=== PATIENT | female | born 1965 | race Caucasian/White ===

== ENCOUNTER 2018-01-11 10:28 | Emergency (ER) | payer BC ==
--- OUTSIDE RECORDS SUMMARY | 2018-01-11 12:37 | XMS REPORT ---
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 Active 552702900 intraepithelial lesion on cytologic smear of cervix (LGSIL) Problem Other specified N93.8 Active 986847630 abnormal uterine and vaginal bleeding Problem Unspecified lump in N63.23 Active 044641411 the left breast, lower outer quadrant Problem Tobacco abuse Z71.6 Active 011703600 counseling Problem Other specified N39.498 Active 359841195 urinary incontinence Problem Cystocele, midline N81.11 Active 809440873 Problem Other abnormal and R92.8 Active 869553859 inconclusive findings on diagnostic imaging of breast Problem Lichen simplex L28.0 Active 28492761 chronicus ALLERGIES No Information ENCOUNTERS Encounter Location Date Diagnosis [facility] 103 15 Apr, 2018 [place]YN [place], [place] [id number] [facility] 103 Mar, OBGYN [place] [id number] [facility] 103 Jan, [place] [id number] [facility] 103 Dec, [place] [id number] [facility] 103 Dec, Encounter for [facility]ological [facility] examination (general) [place], [place] [id number] (routine) without abnormal findings Z01.419 ; Personal history of vulvar dysplasia Z87.412 ; Lichen simplex chronicus L28.0 ; Encounter for screening for malignant neoplasm of cervix Z12.4 ; Encounter for screening for malignant neoplasm of colon Z12.11 ; Tobacco abuse counseling Z71.6 and Other abnormal and inconclusive findings on diagnostic imaging of breast R92.8 [facility] 103 Dec, Unspecified lump in the [facility] left breast, lower outer [place], [place] [id number] quadrant N63.23 and Other abnormal and inconclusive findings on diagnostic imaging of breast R92.8 [facility] 103 Dec, [place], [place] [id number] [facility] 103 Dec, Encounter for [facility]necological [facility] examination (general) [place], [place] [id number] (routine) with abnormal findings Z01.411 ; Personal history of vulvar dysplasia Z87.412 ; Encounter for gynecological examination (general) (routine) without abnormal findings Z01.419 ; Lichen simplex chronicus L28.0 ; Encounter for screening for malignant neoplasm of cervix Z12.4 ; Encounter for screening mammogram for malignant neoplasm of breast Z12.31 ; Encounter for screening for malignant neoplasm of colon Z12.11 and Tobacco abuse counseling Z71.6 [facility] 103 May, Unspecified lump in the [facility] left breast, lower outer [place], [place] [id number] quadrant N63.23 [facility] 103 Apr, [place], [place] [id number] [facility] 103 Apr, [facility] Z87.412 and [place], [place] [id number] Lichen simplex chronicus L28.0 [facility] 103 Apr, Other abnormal and [facility] inconclusive findings on [place], [place] [id number] diagnostic imaging of breast R92.8 [facility] 103 Apr, OBGYN [place], [place] [id number] [facility] 103 Apr, Personal [facility] of [facility] dysplasia Z87.412 and [place], [place] [id number] Lichen simplex chronicus L28.0 [facility] 103 Feb, [place] [id number] [facility] 103 Dec, [place] [id number] [facility] 103 Nov, OBGYN [place] [id number] [facility] 103 Nov, Encounter for gynecological [facility] examination (general) [place], [place] [id number] (routine) with abnormal findings Z01.411 ; Personal history of vulvar dysplasia Z87.412 ; Encounter for screening for malignant neoplasm of cervix Z12.4 ; Atypical squamous cells of undetermined significance on cytologic smear of cervix (ASC-US) R87.610 ; Encounter for screening mammogram for malignant neoplasm of breast Z12.31 ; Lichen simplex chronicus L28.0 and Encounter for screening for malignant neoplasm of colon Z12.11 [facility] 103 02 Aug, 2016 Personal history of vulvar OBGYN [facility] dysplasia Z87.412 ; [place], [place] [id number] Atypical squamous cells of undetermined significance on cytologic smear of cervix (ASC-US) R87.610 and Lichen simplex chronicus L28.0 [facility] 103 16 Mar, 2016 Personal history of vulvar OBGYN [facility] dysplasia Z87.412 ; [place], [place] [id number] Atypical squamous cells of undetermined significance on cytologic smear of cervix (ASC-US) R87.610 ; Lichen simplex chronicus L28.0 and Other specified urinary incontinence N39.498 [facility] 103 Feb, Personal history of vulvar OBGYN [facility] dysplasia Z87.412 and [place], [place] [id number] Atypical squamous cells of undetermined significance on cytologic smear of cervix (ASC-US) R87.610 [facility] 103 Nov, [place] [id number] [facility] 103 Nov, [place] [id number] [facility] 103 Nov, Personal history of vulvar OBGYN [facility] dysplasia Z87.412 ; [place], [place] [id number] Cystocele, midline N81.11 ; Rectocele N81.6 ; Incomplete uterovaginal prolapse N81.2 ; Encounter for gynecological examination (general) (routine) with abnormal findings Z01.411 ; Encounter for screening mammogram for malignant neoplasm of breast Z12.31 ; Encounter for screening for malignant neoplasm of cervix Z12.4 and Encounter for screening for malignant neoplasm of colon Z12.11 [facility] 103 12 Nov, 2015 [place] [id number] [facility] 103 Nov, Personal history of vulvar OBGYN [facility] dysplasia Z87.412 [place], [place] [id number] [facility] 103 May, Personal history of vulvar OBGYN [facility] dysplasia Z87.412 ; [place], [place] [id number] Cystocele, midline N81.11 ; Rectocele N81.6 ; Unspecified ovarian cysts N83.20 ; Other specified abnormal uterine and vaginal bleeding N93.8 and Incomplete uterovaginal prolapse N81.2 [facility] 103 May, Ovarian cyst NOS 620.2 [place] [id number] [facility] 103 May, VULVAR LESION 624.9 and OBGYN [facility] Personal history of vulvar [place], [place] [id number] dysplasia V13.24 [facility] 103 May, Cystocele, midline N81.11 [facility] and Rectocele N81.6 [place] [id number] [facility] 103 Mar, Low grade squamous [facility] intraepithelial lesion on [place], [place] [id number] cytologic smear of cervix (LGSIL) R87.612 ; Cervical high risk human papillomavirus (HPV) DNA test positive R87.810 ; Unspecified ovarian cysts N83.20 ; Other specified abnormal uterine and vaginal bleeding N93.8 and [place]ushing R23.2 [facility] 103 Mar, [place] [id number] [facility] 103 Mar, Unspecified ovarian cysts OBN [facility] N83.20 and Abnormal [place], [place] [id number] findings on diagnostic imaging of other specified body structures R93.8 [facility] 103 Feb, [place] [id number] [facility] 103 Feb, [place] [id number] [facility] 103 Feb, [place] [id number] [facility] 103 Jan, Low grade squamous [facility] intraepithelial lesion on [place], [place] [id number] cytologic smear of cervix (LGSIL) R87.612 ; Cervical high risk human papillomavirus (HPV) DNA test positive R87.810 ; Personal history of vulvar dysplasia V13.24 and Unspecified ovarian cysts N83.20 [facility] 103 Jan, OBGYN [place] [id number] [facility] 103 Jan, [place] [id number] [facility] 103 Jan, Other specified [facility] noninflammatory disorders [place], [place] [id number] of vagina N89.8 and Acute vaginitis N76.0 [facility] 103 Dec, Low grade squamous [facility] intraepithelial lesion on [place], [place] [id number] cytologic smear of cervix (LGSIL) R87.612 and Cervical high risk human papillomavirus (HPV) DNA test positive R87.810 [facility] 103 Dec, [place] [id number] [facility] 103 Nov, [place] [id number] [facility] 103 Nov, SCREEN MAMMOGRAM NEC V76.12 [place] [id number] [facility] 103 Nov, ROUTINE SIGHT EFFECTS SPECIALIST EXAMINATION [facility] V72.31 ; PAP SMEAR W/O SIGHT EFFECTS SPECIALIST [place], [place] [id number] EXAM V76.2 ; SCREEN MALIG NEOP-COLON V76.51 ; SCREEN MAMMOGRAM NEC V76.12 ; Personal history of vulvar dysplasia V13.24 and Ovarian cyst NOS 620.2 [facility] 103 Nov, Ovarian cyst NOS 620.2 [place] [id number] [facility] 103 Oct, [place] [id number] [facility] 103 Oct, [place] [id number] [facility] 103 Oct, [place] [id number] [facility] 103 Oct, Personal history of vulvar OBGYN [facility] dysplasia V13.24 and [place], [place] [id number] Ovarian cyst NOS 620.2 [facility] 103 Oct, OBGYN [place] [id number] [facility] 103 Sep, Abnormal findings on OBGYN [facility] radiological or other exams [place], [place] [id number] of body structure, NEC 793.99 ; Personal history of vulvar dysplasia V13.24 and Ovarian cyst NOS 620.2 [facility] 103 Aug, OBGYN [place] [id number] [facility] [address] [place], Aug, [place] [id number] [facility] 103 Aug, Abnormal findings on OBGYN [facility] radiological or other exams [place], [place] [id number] of body structure, NEC 793.99 [facility] 103 July, OBGYN [place], [place] [id number] [facility] July, Abnormal findings on OBGYN [address] [place], radiological or other exams [place] [id number] of body structure, NEC 793.99 ; Personal history of vulvar dysplasia V13.24 and Ovarian cyst NOS 620.2 [facility] 103 July, Abnormal findings on OBGYN [facility] radiological or other exams [place], [place] [id number] of body structure, NEC 793.99 [facility] 103 July, Abnormal findings on OBGYN [facility] radiological or other exams [place], [place] [id number] of body structure, NEC 793.99 [facility] 103 July, 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 621.34 and [place], [place] [id number] Ovarian cyst NOS 620.2 [facility] 103 July, Personal history of vulvar OBGYN [facility] dysplasia V13.24 and [place], [place] [id number] 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 [facility] 103 July, OBGYN [place], [place] [id number] [facility] 103 Jun, Menometrorrhagia 626.2 OBGYN [place], [place] [id number] [facility] 103 Jun, Ovarian cyst NOS 620.2 and OBGYN [facility] Benign endometrial [place], [place] [id number] hyperplasia 621.34 [facility] 103 Jun, Ovarian cyst NOS 620.2 O[place], [place] [id number] [facility] 103 Feb, Ovarian cyst NOS 620.2 OBG[place] [id number] [facility] 103 Feb, Ovarian cyst NOS 620.2 OBGYN [place], [place] [id number] [facility] 103 Jan, CARCINOMA IN SITU VULVA OBGYN [facility] [address] [place], [place] [id number] [facility] 103 Jan, CARCINOMA IN SITU VULVA OBGYN [place] [address] and Tobacco use [place], [place] [id number] disorder 305.1 [facility] 103 Jan, OBGYN [place] [id number] [facility] 103 Jan, OBGYN [place], [place] [id number] [facility] [address] [place], Jan, Medical [facility] [id number] [place] 103 Dec, 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) [place], [place] [id number] 624.02 [facility] 103 Dec, OBGYN [place], [place] [id number] [facility] 103 Dec, 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) [place], [place] [id number] 624.02 and VULVAR LESION 624.9 [facility] 103 Dec, Ovarian cyst NOS 620.2 OBGYN [place], [place] [id number] [facility] 103 Dec, OBGYN [place], [place] [id number] [facility] 103 Dec, 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) [place], [place] [id number] 624.02 and VULVAR LESION 624.9 [facility] 103 Oct, OBGYN [place], [place] [id number] [facility] 103 Oct, ROUTINE SIGHT EFFECTS SPECIALIST EXAMINATION OBGYN [facility] V72.31 ; PAP SMEAR W/O SIGHT EFFECTS SPECIALIST [place], [place] [id number] EXAM V76.2 ; SCREEN MAMMOGRAM NEC V76.12 ; Ovarian cyst NOS 620.2 and 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 [facility] 103 Oct, Ovarian cyst NOS 620.2 OBGYN [place] [id number] [facility] 103 Sep, SCREEN MAMMOGRAM NEC V76.12 OBGYN [place], [place] [id number] [facility] 103 Sep, Menometrorrhagia 626.2 and OBGYN [facility] Ovarian cyst NOS 620.2 [place] [id number] [facility] 103 Sep, Menometrorrhagia 626.2 O[place]YN [place], [place] [id number] [facility] 103 Sep, OBGYN [place], [place] [id number] [facility] 103 Sep, Menometrorrhagia 626.2 and OBGYN [facility] Ovarian cyst NOS 620.2 [place] [id number] [facility] 103 Sep, Ovarian cyst NOS 620.2 O[place]YN [place], [place] [id number] [facility] 103 Aug, OBGYN [place], [place] [id number] [facility] 103 Aug, OBGYN [place], [place] [id number] [facility] 103 Aug, OBGYN [place] [id number] [facility] 103 Aug, Menometrorrhagia 626.2 and OBGYN [facility] Ovarian cyst NOS 620.2 [place], [place] [id number] [facility] 103 Aug, OBGYN [place], [place] [id number] [facility] 103 Aug, Menometrorrhagia 626.2 ; OBGYN [facility] Endometrial polyp 621.0 and [place], [place] [id number] Ovarian cyst NOS 620.2 [facility] 103 Aug, Menometrorrhagia 626.2 OBGYN [place], [place] [id number] [facility] 103 Aug, Menometrorrhagia 626.2 ; OBGYN [facility] Ovarian cyst NOS 620.2 and [place], [place] [id number] Endometrial polyp 621.0 [facility] 103 July, OBGYN [place], [place] [id number] [facility] 103 July, OBG[place], [place] [id number] [facility] 103 July, Menometrorrhagia 626.2 and OBGYN [facility] Ovarian cyst NOS 620.2 [place] [id number] [facility] 103 July, [facility]rhagia 626.2 [facility] O[facility] NOS 620.2 [place], [place] [id number] [facility] 103 Jun, OBGYN [place], [place] [id number] [facility] 103 Jun, 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) [place], [place] [id number] 624.02 and Menometrorrhagia 626.2 [facility] 103 Jun, Vulvar intraepithelial [facility] neoplasia II (CARLEY II) [place], [place] [id number] 624.02 [facility] 103 May, OBGYN [place], [place] [id number] [facility] 103 May, VULVAR LESION 624.9 ; OBGYN [facility] Vulvar intraepithelial [place], [place] [id number] neoplasia II (CARLEY II) 624.02 and 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 [facility] 103 Apr, Menorrhagia 626.2 ; VULVAR OBGYN [facility] LESION 624.9 ; Vulvar [place], [place] [id number] intraepithelial neoplasia II (CARLEY II) 624.02 ; 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 ; ABN FINDINGS- ORGANS 793.5 ; Abnormal PAP smear of cervix NEC 795.09 and Ovarian cyst NOS 620.2 [facility] 103 Oct, Vulvar intraepithelial [facility] neoplasia II (CARLEY II) [place], [place] [id number] 624.02 [facility] 103 Sep, Ovarian cyst NOS 620.2 [place] [id number] [facility] 103 Sep, Ovarian cyst NOS 620.2 OBGYN [place], [place] [id number] [facility] 103 Sep, OBGYN [place], [place] [id number] [facility] 103 Sep, Abnormal PAP smear of OBGYN [facility] cervix NEC 795.09 and [place], [place] [id number] Ovarian cyst NOS 620.2 [facility] 103 Aug, ABN FINDINGS- ORGANS OBGYN [facility] 793.5 [place], [place] [id number] [facility] 103 Aug, ABN FINDINGS- ORGANS OBGYN [facility] 793.5 [place], [place] [id number] [facility] 103 Aug, Abnormal PAP smear of OBGYN [facility] cervix NEC 795.09 and [place], [place] [id number] Ovarian cyst NOS 620.2 [facility] 103 Aug, OBGYN [place], [place] [id number] [facility] 103 Jun, OBGYN [place], [place] [id number] [facility] [facility] 103 May, OBGYN [place], [place] [id number] [facility] 103 May, ROUTINE SIGHT EFFECTS SPECIALIST EXAMINATION OBGYN [facility] V72.31 ; PAP SMEAR W/O SIGHT EFFECTS SPECIALIST [place], [place] [id number] EXAM V76.2 and SCREEN MAMMOGRAM NEC V76.12 [facility] 103 May, OBGYN [place], [place] [id number] [facility] 103 Apr, 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 [place], [place] [id number] [facility] 103 Dec, 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 [place], [place] [id number] [facility] [facility] 103 Dec, 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 [place], [place] [id number] [place] [facility] 103 Oct, OBGYN [place], [place] [id number] [facility] 103 Oct, OBGYN [place], [place] [id number] [facility] 103 Oct, 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 [place], [place] [id number] [facility] 103 Sep, 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) [place], [place] [id number] 624.02 [place] [facility] 103 July, 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) [place], [place] [id number] 624.02 [place] [facility] 103 July, OBGYN [place], [place] [id number] [facility] 103 Jun, VULVAR LESION 624.9 [place] [id number] [place] [facility] 103 May, VULVAR LESION 624.9 OBGYN [place], [place] [id number] [facility] [facility] 103 Apr, ROUTINE SIGHT EFFECTS SPECIALIST EXAMINATION OBGYN [facility] V72.31 and PAP SMEAR W/O [place], [place] [id number] SIGHT EFFECTS SPECIALIST EXAM V76.2 [place] [facility] 103 Mar, [place] [id number] [place] [facility] 103 Mar, OBGYN [place], [place] [id number] [facility] [facility] 103 Sep, Menorrhagia 626.2 OBGYN [place], [place] [id number] [facility] [facility] 103 Jun, Menorrhagia 626.2 OBGYN [place], [place] [id number] [facility] [address], May, [facility] [id number] [facility] 103 May, Menorrhagia 626.2 OBGYN [place], [place] [id number] [facility] 103 May, Menorrhagia 626.2 OBGYN [place], [place] [id number] [facility] [facility] 103 Apr, Dysuria 788.1 OBGYN [place], [place] [id number] [facility] [facility] 103 Apr, Menorrhagia 626.2 OBGYN [place], [place] [id number] [facility] 103 Apr, Menorrhagia 626.2 OBGYN [place], [place] [id number] [facility] 103 Apr, Menorrhagia 626.2 and OBGYN [facility] Endometrial polyp 621.0 [place], [place] [id number] [facility] [facility] 103 Apr, Menometrorrhagia 626.2 OBGYN [place], [place] [id number] [facility] 103 Mar, ROUTINE SIGHT EFFECTS SPECIALIST EXAMINATION OBGYN [facility] V72.31 and Menorrhagia [place], [place] [id number] 626.2 [place] [facility] 103 Sep, CERVICAL DYSPLASIA, MILD OBGYN [facility] (PEYMAN I) 622.11 [place], [place] [id number] [place] [facility] 103 Mar, ROUTINE SIGHT EFFECTS SPECIALIST EXAMINATION OBGYN [facility] V72.31 and CERVICAL [place], [place] [id number] DYSPLASIA, MILD (PEYMAN I) 622.11 [facility] 103 Jun, Menometrorrhagia 626.2 ; [facility] Anemia, iron deficiency, [place], [place] [id number] due to chronic blood loss 280.0 and CERVICAL DYSPLASIA, MILD (PEYMAN I) 622.11 [facility] [address], May, [facility] [id number] [facility] 103 May, Menometrorrhagia 626.2 and [facility] Endometrial polyp 621.0 [place], [place] [id number] [facility] [facility] 103 May, Menometrorrhagia 626.2 ; [facility] Anemia, iron deficiency, [place], [place] [id number] due to chronic blood loss 280.0 ; Endometrial polyp 621.0 and CERVICAL DYSPLASIA, MILD (PEYMAN I) 622.11 [facility] 103 Apr, Menometrorrhagia 626.2 ; [facility] Anemia, iron deficiency, [place], [place] [id number] due to chronic blood loss 280.0 and Endometrial polyp 621.0 [facility] 103 Apr, Menometrorrhagia 626.2 ; [facility] Anemia, iron deficiency, [place], [place] [id number] due to chronic blood loss 280.0 and Endometrial polyp 621.0 [facility] 103 Apr, [place], [place] [id number] [facility] 103 Mar, Menometrorrhagia 626.2 [place], [place] [id number] [facility] 103 Mar, Menometrorrhagia 626.2 and [facility] Endometrial polyp 621.0 [place], [place] [id number] [facility] 103 Mar, Abnormal Pap smear of [facility] cervix with low-grade [place], [place] [id number] squamous intraepithelial lesion 795.03 [facility] 103 12 Mar, 2008 Menometrorrhagia 626.2 and OBGYN [facility] PAP SMEAR CERVIX W LGSIL [place], [place] [id number] 795.03 [facility] O[facility]YN 103 Mar, OBGYN [place], [place] [id number] [facility] OBGYN 103 Sep, OBGYN [place], [place] [id number] [facility] O[facility]YN 103 Aug, Menorrhagia 626.2 OBGYN [place], [place] [id number] IMMUNIZATIONS No Known Immunizations SOCIAL HISTORY Never Assessed REASON FOR REFERRAL FUNCTIONAL STATUS PLAN OF CARE VITAL SIGNS MEDICATIONS Unknown Medications PROCEDURES No Known procedures RESULTS No Results REASON FOR VISIT Needs colpo Insurance Providers [facility] Member Patient Patient Patient Patient Patient Subscriber Subscriber Subscriber Group Insurance Plan Plan Plan Plan ID Relationship Address Phone Name Date of ID Name Date of No Type Insurance Insurance Insurance Coverage to Subscriber Address Phone Name Dates Cign[employer] [phone] [employer] [place] [id number] [facility] [id number] [employer] [phone] [employer] self [place] [id number] Blue [id number] [address] Cross/Blue [place] Cross/Blue Shield [id number] Shield AETNA [phone] [employer] [place] [id number] [address] [address] [facility] [address] [employer] [phone] [employer] [place] [id number] Blue [id number] 89 [address] [place] 7 00 Cross/[place] Cross/Blue Shield [id number] Shield MEDICAL (GENERAL) HISTORY Type Description Date Medical History hypertension Medical History anemia Medical History anxiety Medical History VIN2 Medical History Endometrial polyp Surgical History site directed biopsy 05/02/08 Surgical History tonsils Surgical History BTL Surgical History hysteroscopy, D&C polypectomy 05-29-08 Surgical History Hysteroscopy/D&C 05-26-10 Surgical History ventral hernia repair 04-23-12 Surgical History Hysteroscopy/Novasure 09-13-13 Surgical History Right leg mole removal 12/05/13 Surgical History Wide local excision of vulva 12/08/13 Surgical History hysteroscopy, D&C 09/02/14 Surgical History Colonoscopy (Dr. Renee): sigmoid polyps 05-22-14 Surgical History 2 Stents/ lower groin 10/13/17 Hospitalization History child Hospitalization History see above
--- OUTSIDE RECORDS SUMMARY | 2018-01-11 12:37 | XMS REPORT ---
:1965 Author Organization [facility] Address [address] 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 Active 212410595 intraepithelial lesion on cytologic smear of cervix (LGSIL) Problem Other specified N93.8 Active 636780575 abnormal uterine and vaginal bleeding Problem Unspecified lump in N63.23 Active 229368328 the left breast, lower outer quadrant Problem Tobacco abuse Z71.6 Active 118626709 counseling Problem Other specified N39.498 Active 071488778 urinary incontinence Problem Cystocele, midline N81.11 Active 319031788 Problem Other abnormal and R92.8 Active 756212063 inconclusive findings on diagnostic imaging of breast Problem Lichen simplex L28.0 Active 49626590 chronicus ALLERGIES No Known Allergies ENCOUNTERS Encounter Location Date Diagnosis [facility] 103 Apr, OBGYN [place], [place] [id number] [facility] 103 Dec, OBGYN [place] [id number] [facility] 103 Dec, Encounter for gynecological OBGYN [facility] examination (general) [place], [place] [id number] (routine) without abnormal findings Z01.419 ; Personal history of vulvar dysplasia Z87.412 ; Lichen simplex chronicus L28.0 ; Encounter for screening for malignant neoplasm of cervix Z12.4 ; Encounter for screening for malignant neoplasm of colon Z12.11 ; Tobacco abuse counseling Z71.6 and Other abnormal and inconclusive findings on diagnostic imaging of breast R92.8 [facility] 103 Dec, Unspecified lump in the [facility] left breast, lower outer [place], [place] [id number] quadrant N63.23 and Other abnormal and inconclusive findings on diagnostic imaging of breast R92.8 [facility] 103 Dec, [place], [place] [id number] [facility] 103 Dec, Encounter for gynecological [facility] examination (general) [place], [place] [id number] (routine) with abnormal findings Z01.411 ; Personal [...] colon Z12.11 and Tobacco abuse counseling Z71.6 [facility] 103 May, Unspecified lump in the [facility] left breast, lower outer [place], [place] [id number] quadrant N63.23 [facility] 103 Apr, [place], [place] [id number] [facility] 103 Apr, Personal history of vulvar [facility] dysplasia Z87.412 and [place], [place] [id number] Lichen simplex chronicus L28.0 [facility] 103 Apr, Other abnormal and [facility] inconclusive findings on [place], [place] [id number] diagnostic imaging of breast R92.8 [facility] 103 18 Apr, 2017 [place] [id number] [facility] 103 Apr, [facility] Z87.412 and [place], [place] [id number] Lichen simplex chronicus L28.0 [facility] 103 Feb, [place] [id number] [facility] 103 Dec, [place] [id number] [facility] 103 Nov, [place] [id number] [facility] 103 Nov, Encounter for gynecological [facility] examination (general) [place], [place] [id number] (routine) with abnormal findings Z01.411 ; Personal [...] of colon Z12.11 [facility] 103 Aug, Personal history of vulvar OBGYN [facility] dysplasia Z87.412 ; [place], [place] [id number] Atypical squamous cells of undetermined significance on cytologic smear of cervix (ASC-US) R87.610 and Lichen simplex chronicus L28.0 [facility] 103 Mar, Personal history of vulvar OBGYN [facility] dysplasia Z87.412 ; [place], [place] [id number] Atypical squamous cells of undetermined significance on cytologic smear of cervix (ASC-US) R87.610 ; Lichen simplex chronicus L28.0 and Other specified urinary incontinence N39.498 [facility] 103 Feb, Personal history of vulvar OBGYN [facility] dysplasia Z87.412 and [place], [place] [id number] Atypical squamous cells of undetermined significance on cytologic smear of cervix (ASC-US) R87.610 [facility] 103 Nov, [place] [id number] [facility] 103 Nov, [place] [id number] [facility] 103 Nov, Personal history of vulvar OBGYN [facility] dysplasia Z87.412 ; [place], [place] [id number] Cystocele, midline N81.11 ; Rectocele N81.6 ; Incomplete uterovaginal prolapse N81.2 ; Encounter for gynecological examination (general) (routine) with abnormal findings Z01.411 ; Encounter for screening mammogram for malignant neoplasm of breast Z12.31 ; Encounter for screening for malignant neoplasm of cervix Z12.4 and Encounter for screening for malignant neoplasm of colon Z12.11 [facility] 103 Nov, [place], [place] [id number] [facility] 103 Nov, Personal history of vulvar OBGYN [facility] dysplasia Z87.412 [place], [place] [id number] [facility] 103 May, Personal history of vulvar OBGYN [facility] dysplasia Z87.412 ; [place], [place] [id number] Cystocele, midline N81.11 ; Rectocele N81.6 ; Unspecified ovarian cysts N83.20 ; Other specified abnormal uterine and vaginal bleeding N93.8 and Incomplete uterovaginal prolapse N81.2 [facility] 103 14 May, 2015 Ovarian cyst NOS 620.2 [place] [id number] [facility] 103 May, VULVAR LESION 624.9 and OBGYN [facility] Personal history of vulvar [place], [place] [id number] dysplasia V13.24 [facility] 103 May, Cystocele, midline N81.11 [facility] and Rectocele N81.6 [place], [place] [id number] [facility] 103 Mar, Low grade squamous [facility] intraepithelial lesion on [place] [id number] cytologic smear of cervix (LGSIL) R87.612 ; Cervical high risk human papillomavirus (HPV) DNA test positive R87.810 ; Unspecified ovarian cysts N83.20 ; Other specified abnormal uterine and vaginal bleeding N93.8 and Flushing R23.2 [place] [facility] 103 Mar, OBGYN [place] [id number] [facility] 103 Mar, Unspecified ovarian cysts [facility] N83.20 and Abnormal [place], [place] [id number] findings on diagnostic imaging of other specified body structures R93.8 [place] [facility] 103 Feb, O[place] [id number] [place] [facility] 103 Feb, [place] [id number] [facility] 103 Feb, [place] [id number] [facility] 103 Jan, Low grade squamous [facility] intraepithelial lesion on [place], [place] [id number] cytologic smear of cervix (LGSIL) R87.612 ; Cervical high risk human papillomavirus (HPV) DNA test positive R87.810 ; Personal history of vulvar dysplasia V13.24 and Unspecified ovarian cysts N83.20 [place] [facility] 103 Jan, [place] [id number] [facility] 103 Jan, [place] [id number] [place] [facility] 103 Jan, Other specified [facility] noninflammatory disorders [place], [place] [id number] of vagina N89.8 and Acute vaginitis N76.0 [facility] 103 Dec, Low grade squamous [facility] intraepithelial lesion on [place], [place] [id number] cytologic smear of cervix (LGSIL) R87.612 and Cervical high risk human papillomavirus (HPV) DNA test positive R87.810 [facility] 103 Dec, OBG[place] [id number] [facility] 103 Nov, [place] [id number] [facility] 103 Nov, SCREEN MAMMOGRAM NEC V76.12 [place] [id number] [facility] 103 Nov, ROUTINE LIFT BUILDER WHOLE EXAMINATION OBN [facility] V72.31 ; PAP SMEAR W/O LIFT BUILDER WHOLE [place], [place] [id number] EXAM V76.2 ; SCREEN MALIG NEOP-COLON V76.51 ; SCREEN MAMMOGRAM NEC V76.12 ; Personal history of vulvar dysplasia V13.24 and Ovarian cyst NOS 620.2 [facility] 103 Nov, Ovarian cyst NOS 620.2 [place] [id number] [facility] 103 Oct, [place] [id number] [facility] 103 Oct, [place] [id number] [facility] 103 Oct, [place] [id number] [facility] 103 Oct, Personal history of vulvar [facility] dysplasia V13.24 and [place], [place] [id number] Ovarian cyst NOS 620.2 [facility] 103 Oct, [place] [id number] [facility] 103 Sep, Abnormal findings on OBGYN [facility] radiological or other exams [place], [place] [id number] of body structure, NEC 793.99 ; Personal history of vulvar dysplasia V13.24 and Ovarian cyst NOS 620.2 [facility] 103 Aug, OBG[place] [id number] [facility] [address] [place], Aug, [facility] [id number] [facility] 103 Aug, Abnormal findings on OBGYN [facility] radiological or other exams [place], [place] [id number] of body structure, NEC 793.99 [facility] July, [place] [id number] [facility] [address] [place] [address] July, Abnormal findings on OBGYN [address] [facility], radiological or other exams [place] [id number] of body structure, NEC 793.99 ; Personal history of vulvar dysplasia V13.24 and Ovarian cyst NOS 620.2 [facility] 103 July, Abnormal findings on OBGYN [facility] radiological or other exams [place], [place] [id number] of body structure, NEC 793.99 [facility] July, Abnormal findings on OBGYN [facility] radiological or other exams [place], [place] [id number] of body structure, NEC 793.99 [facility] 103 July, 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 and [place], [place] [id number] Ovarian cyst NOS 620.2 [facility] 103 July, Personal history of vulvar OBGYN [facility] dysplasia V13.24 and [place], [place] [id number] 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 [facility] 103 July, [place] [id number] [facility] 103 Jun, Menometrorrhagia 626.2 OBGYN [place] [id number] [place] [facility] 103 Jun, Ovarian cyst NOS 620.2 and OBGYN [facility] Benign endometrial [place], [place] [address] hyperplasia 621.34 [place] [facility] 103 Jun, Ovarian cyst NOS 620.2 [place] [id number] [place] [facility] 103 Feb, Ovarian cyst NOS 620.2 [place] [id number] [place] [facility] 103 Feb, Ovarian cyst NOS 620.2 [place] [id number] [place] [facility] 103 Jan, CARCINOMA IN SITU VULVA OBGYN [facility] 233.32 [place], [place] [id number] [place] [facility] 103 Jan, CARCINOMA IN SITU VULVA OBGYN [facility] 233[facility] and Tobacco use [place], [place] [address] disorder 305.1 [place] [facility] 103 Jan, [place] [id number] [place] [facility] 103 Jan, O[place] [id number] [place] [facility] [address] [place], Jan, Medical [facility] [id number] [place] [facility] 103 Dec, 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) [place], [place] [id number] 624.02 [place] [facility] 103 Dec, [place] [id number] [place] [facility] 103 Dec, 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) [place], [place] [id number] 624.02 and VULVAR LESION 624.9 [place] [facility] 103 Dec, Ovarian cyst NOS 620.2 OBGYN [place] [id number] [place] [facility] 103 Dec, [place] [id number] [place] [facility] 103 Dec, 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) [place], [place] [id number] 624.02 and VULVAR LESION 624.9 [place] [facility] 103 Oct, OBG[place] [id number] [place] [facility] 103 Oct, ROUTINE LIFT BUILDER WHOLE EXAMINATION OBGYN [facility] V72.31 ; PAP SMEAR W/O LIFT BUILDER WHOLE [place], [place] [id number] EXAM V76.2 ; SCREEN MAMMOGRAM NEC V76.12 ; Ovarian cyst NOS 620.2 and 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 [place] [facility] 103 Oct, Ovarian cyst NOS 620.2 [place] [id number] [place] [facility] 103 Sep, SCREEN MAMMOGRAM NEC V76.12 [place] [id number] [place] [facility] 103 Sep, Menometrorrhagia 626.2 and OBGYN [facility] Ovarian cyst NOS 620.2 [place], [place] [id number] [place] [facility] 103 Sep, Menometrorrhagia 626.2 OBGYN [place] [id number] [place] [facility] 103 Sep, O[place] [id number] [place] [facility] 103 Sep, Menometrorrhagia 626.2 and OBGYN [facility] Ovarian cyst NOS 620.2 [place] [id number] [place] [facility] 103 Sep, Ovarian cyst NOS 620.2 O[place]YN [place] [id number] [place] [facility] 103 Aug, [place] [id number] [place] [facility] 103 Aug, O[place] [id number] [place] [facility] 103 Aug, [place] [id number] [place] [facility] 103 Aug, Menometrorrhagia 626.2 and OBGYN [facility] Ovarian cyst NOS 620.2 [place], [place] [id number] [place] [facility] 103 Aug, [place] [id number] [place] [facility] 103 Aug, Menometrorrhagia 626.2 ; OBGYN [facility] Endometrial polyp 621.0 and [place], [place] [id number] Ovarian cyst NOS 620.2 [place] [facility] 103 Aug, Menometrorrhagia 626.2 OBGYN [place] [id number] [place] [facility] 103 Aug, Menometrorrhagia 626.2 ; OBGYN [facility] Ovarian cyst NOS 620.2 and [place], [place] [id number] Endometrial polyp 621.0 [place] [facility] 103 July, [place] [id number] [place] [facility] 103 July, [place] [id number] [place] [facility] 103 July, Menometrorrhagia 626.2 and OBGYN [facility] Ovarian cyst NOS 620.2 [place] [id number] [place] [facility] 103 July, Menometrorrhagia 626.2 and OBGYN [facility] Ovarian cyst NOS 620.2 [place] [id number] [place] [facility] 103 Jun, [place] [id number] [place] [facility] 103 Jun, 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) [place], [place] [id number] 624.02 and Menometrorrhagia 626.2 [place] [facility] 103 Jun, 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) [place], [place] [id number] 624.02 [place] [facility] 103 May, O[place] [id number] [place] [facility] 103 May, VULVAR LESION 624.9 ; OBGYN [facility] Vulvar intraepithelial [place], [place] [id number] neoplasia II (CARLEY II) 624.02 and 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 [place] [facility] 103 Apr, Menorrhagia 626.2 ; VULVAR OBGYN [facility] LESION 624.9 ; Vulvar [place], [place] [id number] intraepithelial neoplasia II (CARLEY II) 624.02 ; 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 ; ABN FINDINGS- ORGANS 793.5 ; Abnormal PAP smear of cervix NEC 795.09 and Ovarian cyst NOS 620.2 [place] [facility] 103 Oct, 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) [place], [place] [id number] 624.02 [place] [facility] 103 Sep, Ovarian cyst NOS 620.2 OBG[place] [id number] [place] [facility] 103 Sep, Ovarian cyst NOS 620.2 [place] [id number] [place] [facility] 103 Sep, [place] [id number] [facility] 103 Sep, Abnormal PAP smear of OBGYN [facility] cervix NEC 795.09 and [place], [place] [id number] Ovarian cyst NOS 620.2 [place] [facility] 103 13 Aug, 2012 ABN FINDINGS- ORGANS OBGYN [facility] 793.5 [place] [id number] [place] [facility] 103 12 Aug, 2012 ABN FINDINGS- ORGANS OBGYN [facility] 793.5 [place], [place] [id number] [place] [facility] 103 12 Aug, 2012 Abnormal PAP smear of OBGYN [facility] cervix NEC 795.09 and [place], [place] [id number] Ovarian cyst NOS 620.2 [place] [facility] 103 11 Aug, 2012 [place] [id number] [place] [facility] 103 Jun, [place] [id number] [place] [facility] 103 May, OBG[place] [id number] [place] [facility] 103 May, ROUTINE LIFT BUILDER WHOLE EXAMINATION OBGYN [facility] V72.31 ; PAP SMEAR W/O LIFT BUILDER WHOLE [place], [place] [id number] EXAM V76.2 and SCREEN MAMMOGRAM NEC V76.12 [place] [facility] 103 May, [place] [id number] [place] [facility] 103 Apr, Vulvar intraepithelial OBGYN [facility] [address] neoplasia I (CARLEY I) 624.01 [place], [place] [id number] [place] [facility] 103 Dec, Vulvar intraepithelial OBGYN [facility] [address] neoplasia I (CARLEY I) 624.01 [place], [place] [id number] [place] [facility] 103 Dec, 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 [place], [place] [id number] [place] [facility] 103 Oct, O[place] [id number] [place] [facility] 103 Oct, OBG[place] [id number] [place] [facility] 103 Oct, 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 [place], [place] [id number] [place] [facility] 103 Sep, 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) [place], [place] [id number] 624.02 [place] [facility] 103 July, 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) [place], [place] [id number] 624.02 [place] [facility] 103 July, O[place] [id number] [place] [facility] 103 Jun, VULVAR LESION 624.9 OBGYN [place] [id number] [place] [facility] 103 May, VULVAR LESION 624.9 OBGYN [place] [id number] [place] [facility] 103 Apr, ROUTINE LIFT BUILDER WHOLE EXAMIN[facility] V72.31 and PAP SMEAR W/O [place], [place] [id number] LIFT BUILDER WHOLE EXAM V76.2 [facility] 103 Mar, [place] [id number] [place] [facility] 103 Mar, O[place] [id number] [place] [facility] 103 Sep, Menorrhagia 626.2 OBGYN [place] [id number] [place] [facility] 103 Jun, Menorrhagia 626.2 OBGYN [place] [id number] [place] [facility] [address] [place], May, [facility] [id number] [facility] 103 May, Menorrhagia 626.2 OBGYN [place] [id number] [place] [facility] 103 May, Menorrhagia 626.2 OBGYN [place] [id number] [place] [facility] 103 Apr, Dysuria 788.1 OBGYN [place] [id number] [facility] 103 Apr, Menorrhagia 626.2 OBGYN [place] [id number] [place] [facility] 103 Apr, Menorrhagia 626.2 O[place]YN [place] [id number] [place] [facility] 103 Apr, Menorrhagia 626.2 and OBGYN [facility] Endometrial polyp 621.0 [place], [place] [id number] [place] [facility] 103 Apr, Menometrorrhagia 626.2 OBGYN [place], [place] [id number] [facility] 103 Mar, ROUTINE LIFT BUILDER WHOLE EXAMINATION OBGYN [facility] V72.31 and Menorrhagia [place], [place] [id number] 626.2 [facility] 103 Sep, CERVICAL DYSPLASIA, MILD OBGYN [facility] (PEYMAN I) 622.11 [place], [place] [id number] [facility] 103 Mar, ROUTINE LIFT BUILDER WHOLE EXAMINATION OBGYN [facility] V72.31 and CERVICAL [place], [place] [id number] DYSPLASIA, MILD (PEYMAN I) 622.11 [facility] 103 Jun, Menometrorrhagia 626.2 ; OBGYN [facility] Anemia, iron deficiency, [place] [id number] due to chronic blood loss 280.0 and CERVICAL DYSPLASIA, MILD (PEYMAN I) 622.11 [facility] [address], May, [facility] [id number] [facility] May, Menometrorrhagia 626.2 and [facility] Endometrial polyp 621.0 [place], [place] [id number] [place] [facility] 103 May, Menometrorrhagia 626.2 ; [facility], iron deficiency, [place], [place] [id number] due to chronic blood loss 280.0 ; Endometrial polyp 621.0 and CERVICAL DYSPLASIA, MILD (PEYMAN I) 622.11 [facility] 103 Apr, Menometrorrhagia 626.2 ; [facility] Anemia, iron deficiency, [place], [place] [id number] due to chronic blood loss 280.0 and Endometrial polyp 621.0 [place] [facility] 103 Apr, Menometrorrhagia 626.2 ; [facility] Anemia, iron deficiency, [place], [place] [id number] due to chronic blood loss 280.0 and Endometrial polyp 621.0 [facility] 103 Apr, [place], [place] [id number] [facility] 103 Mar, Menometrorrhagia 626.2 [place], [place] [id number] [place] [facility] 103 Mar, Menometrorrhagia 626.2 and [facility] Endometrial polyp 621.0 [place], [place] [id number] [place] [facility] 103 Mar, Abnormal Pap smear of [facility] cervix with low-grade [place], [place] [id number] squamous intraepithelial lesion 795.03 [place] [facility] 103 Mar, Menometrorrhagia 626.2 and [facility] PAP SMEAR CERVIX W LGSIL [place], [place] [id number] 795.03 [place] [facility] 103 Mar, OBG[place], [place] [id number] [facility] 103 Sep, [place], [place] [id number] [facility] 103 Aug, Menorrhagia 626.2 OBG[place], [place] [id number] IMMUNIZATIONS No Known Immunizations SOCIAL HISTORY Never Assessed REASON FOR REFERRAL FUNCTIONAL STATUS PLAN OF CARE Activity Details Follow Up vulvar colpo 04-24, Schedule 1 year annual , please give pt [place] quits ([id number]) at . Reason: Pending Test ThinPrep Pap Test _ use Standing Order Pending Test Mammogram, Diagnostic Bilateral VITAL SIGNS Height 61.5 in 2018-01-01 Weight 142 lbs 2018-01-01 BMI 26.39 kg/m2 2018-01-01 Blood pressure systolic 126 mm Hg 2018-01-01 Blood pressure diastolic 72 mm Hg 2018-01-01 MEDICATIONS Medication Instructions Dosage Frequency Start End Date Duration Status Date amlodipine 10 mg 1 tab 24h Active Metoprolol 100mg 1 tab 12h Active Vitamin D2 1000 orally QD 1 cap(s) 24h Active mg halobetasol applied topically 1 adama 90 days Active topical 0.05% once a week maintenance dose, may increase to twice a day up to 3 weeks if symptomatic Lisinopril/HCTZ 1 tablet 24h Active 20/12.5 Vitamin B-12 orally qd 1 tab(s) 24h Active 1000 mcg PROCEDURES Procedure Date Ordered Result Body Site ASSAY TEST FOR BLOOD, FECAL Jan 01, 2018 URINE-NO MICRO Jan 01, 2018 RESULTS Name Result Date Reference Range Urine dip Glucose blood protein Nitrite Leuko Urobilinogen Keytone Bilirubin pH OCCULT BLOOD,STOOL STOOL OCCULT BLOOD-SINGLE SPEC REASON FOR VISIT Annual Insurance Providers [facility]ly [facility] Health Member Patient Patient Patient Patient Patient Subscriber Subscriber Subscriber Group Insurance Plan Plan Plan Plan ID Relationship Address Phone Name Date of ID Name Date of No Type Insurance Insurance Insurance Coverage to Subscriber Address Phone Name Dates AETNA [phone] [employer] [place] [id number] [place] [address] Cigna [phone] [employer] [place] [id number] [address] [place] [address] [employer] [phone] [employer] [place] [phone] [id number] Blue [id number] [address] 00 Cross/Blue [place] Cross/Blue Shield [id number] Shield [employer] [phone] Excell[employer] self [place] [phone] [id number] Blue [id number] [address] Cross/Blue [place] Cross/Blue Shield [id number] Shield MEDICAL (GENERAL) HISTORY Type Description Date [...]
--- OUTSIDE RECORDS SUMMARY | 2018-01-11 12:37 | XMS REPORT ---
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.612 Active 809902409 intraepithelial lesion on cytologic smear of cervix (LGSIL) Problem Other specified N93.8 Active 646752222 abnormal uterine and vaginal bleeding Problem Unspecified lump in N63.23 Active 910898180 the left breast, lower outer quadrant Problem Tobacco abuse Z71.6 Active 372529664 counseling Problem Other specified N39.498 Active 406400865 urinary incontinence Problem Cystocele, midline N81.11 Active 460707540 Problem Other abnormal and R92.8 Active 005951662 inconclusive findings on diagnostic imaging of breast Problem Lichen simplex L28.0 Active 55396596 chronicus ALLERGIES No Information ENCOUNTERS Encounter Location Date Diagnosis [facility] 103 Dec, [place], [place] [id number] [facility] 103 Dec, Unspecified lump in the OBGYN [facility] left breast, lower outer [place], [place] [id number] quadrant N63.23 and Other abnormal and inconclusive findings on diagnostic imaging of breast R92.8 [facility] Dec, [place] [id number] [facility] 103 Dec, Encounter for gynecological [facility] examination (general) [place], [place] [id number] (routine) with abnormal findings Z01.411 ; Personal [...] colon Z12.11 and Tobacco abuse counseling Z71.6 [facility] 103 May, Unspecified lump in the [facility] left breast, lower outer [place], [place] [id number] quadrant N63.23 [facility] 103 Apr, [place] [id number] [facility] 103 Apr, Personal history of vulvar [facility] dysplasia Z87.412 and [place], [place] [id number] Lichen simplex chronicus L28.0 [facility] 103 Apr, Other abnormal and [facility] inconclusive findings on [place], [place] [id number] diagnostic imaging of breast R92.8 [facility] 103 Apr, [place] [id number] [facility] 103 Apr, Personal history of vulvar [facility] dysplasia Z87.412 and [place], [place] [id number] Lichen simplex chronicus L28.0 [facility] 103 Feb, [place] [id number] [facility] 103 Dec, [place] [id number] [facility] 103 Nov, OBGYN [place] [id number] [facility] 103 Nov, [facility] [place], [place] [id number] (routine) with abnormal findings Z01.411 ; Personal history of vulvar dysplasia Z87.412 ; Encounter for screening for malignant neoplasm of cervix Z12.4 ; Atypical squamous cells of undetermined significance on cytologic smear of cervix (ASC-US) R87.610 ; Encounter for screening mammogram for malignant neoplasm of breast Z12.31 ; Lichen simplex chronicus L28.0 and Encounter for screening for malignant neoplasm of colon Z12.11 [facility] 103 Aug, Personal history of vulvar OBGYN [facility] dysplasia Z87.412 ; [place], [place] [id number] Atypical squamous cells of undetermined significance on cytologic smear of cervix (ASC-US) R87.610 and Lichen simplex chronicus L28.0 [facility] 103 Mar, Personal history of vulvar OBGYN [facility] dysplasia Z87.412 ; [place], [place] [id number] Atypical squamous cells of undetermined significance on cytologic smear of cervix (ASC-US) R87.610 ; Lichen simplex chronicus L28.0 and Other specified urinary incontinence N39.498 [facility] 103 Feb, Personal history of vulvar OBGYN [facility] dysplasia Z87.412 and [place], [place] [id number] Atypical squamous cells of undetermined significance on cytologic smear of cervix (ASC-US) R87.610 [facility] 103 Nov, [place] [id number] [facility] 103 Nov, [place] [id number] [facility] 103 Nov, Personal history of vulvar OBGYN [facility] dysplasia Z87.412 ; [place], [place] [id number] Cystocele, midline N81.11 ; Rectocele N81.6 ; Incomplete uterovaginal prolapse N81.2 ; Encounter for gynecological examination (general) (routine) with abnormal findings Z01.411 ; Encounter for screening mammogram for malignant neoplasm of breast Z12.31 ; Encounter for screening for malignant neoplasm of cervix Z12.4 and Encounter for screening for malignant neoplasm of colon Z12.11 [facility] 103 12 Nov, 2015 [place] [id number] [facility] 103 12 Nov, 2015 Personal history of [facility]var [facility] dysplasia Z87.412 [place], [place] [id number] [facility] 103 14 May, 2015 Personal history of vulvar [facility] dysplasia Z87.412 ; [place], [place] [id number] Cystocele, midline N81.11 ; Rectocele N81.6 ; Unspecified ovarian cysts N83.20 ; Other specified abnormal uterine and vaginal bleeding N93.8 and Incomplete uterovaginal prolapse N81.2 [facility] 103 May, Ovarian cyst NOS 620.2 [place], [place] [id number] [facility] 103 May, VULVAR LESION 624.9 and [facility] Personal history of vulvar [place], [place] [id number] dysplasia V13.24 [facility] 103 May, Cystocele, midline N81.11 [facility] and Rectocele N81.6 [place] [id number] [facility] 103 Mar, Low grade squamous [facility] intraepithelial lesion on [place], [place] [id number] cytologic smear of cervix (LGSIL) R87.612 ; Cervical high risk human papillomavirus (HPV) DNA test positive R87.810 ; Unspecified ovarian cysts N83.20 ; Other specified abnormal uterine and vaginal bleeding N93.8 and Flushing R23.2 [facility] 103 Mar, OBGYN [place] [id number] [facility] 103 Mar, Unspecified ovarian cysts OBN [facility] N83.20 and Abnormal [place], [place] [id number] findings on diagnostic imaging of other specified body structures R93.8 [facility] 103 Feb, OBGYN [place], [place] [id number] [facility] 103 Feb, [place] [id number] [facility] 103 Feb, [place] [id number] [facility] 103 Jan, Low grade squamous [facility] intraepithelial lesion on [place], [place] [id number] cytologic smear of cervix (LGSIL) R87.612 ; Cervical high risk human papillomavirus (HPV) DNA test positive R87.810 ; Personal history of vulvar dysplasia V13.24 and Unspecified ovarian cysts N83.20 [facility] 103 Jan, OBG[place] [id number] [facility] 103 Jan, OBGYN [place], [place] [id number] [facility] 103 Jan, Other specified [facility] noninflammatory disorders [place], [place] [id number] of vagina N89.8 and Acute vaginitis N76.0 [facility] 103 Dec, Low grade squamous [facility] intraepithelial lesion on [place], [place] [id number] cytologic smear of cervix (LGSIL) R87.612 and Cervical high risk human papillomavirus (HPV) DNA test positive R87.810 [facility] 103 Dec, [place] [id number] [facility] 103 Nov, OBGYN [place] [id number] [facility] 103 Nov, SCREEN MAMMOGRAM NEC V76.12 OBGYN [place], [place] [id number] [facility] 103 Nov, ROUTINE BATTERY TESTER AND REPAIRER EXAMINATION OBGYN [facility] V72.31 ; PAP SMEAR W/O BATTERY TESTER AND REPAIRER [place], [place] [id number] EXAM V76.2 ; SCREEN MALIG NEOP-COLON V76.51 ; SCREEN MAMMOGRAM NEC V76.12 ; Personal history of vulvar dysplasia V13.24 and Ovarian cyst NOS 620.2 [facility] 103 Nov, Ovarian cyst NOS 620.2 OBGYN [place] [id number] [facility] 103 Oct, OBGYN [place] [id number] [facility] 103 Oct, OBGYN [place], [place] [id number] [facility] 103 Oct, OBG[place], [place] [id number] [facility] 103 Oct, Personal history of vulvar OBGYN [facility] dysplasia V13.24 and [place], [place] [id number] Ovarian cyst NOS 620.2 [facility] 103 Oct, [place], [place] [id number] [facility] 103 Sep, Abnormal findings on OBGYN [facility] radiological or other exams [place], [place] [id number] of body structure, NEC 793.99 ; Personal history of vulvar dysplasia V13.24 and Ovarian cyst NOS 620.2 [facility] Aug, OBGYN [place] [id number] [facility] [address] [place], Aug, Medical [facility] [id number] [facility] 103 Aug, Abnormal findings on OBGYN [facility] radiological or other exams [place], [place] [id number] of body structure, NEC 793.99 [facility] 103 July, OBG[place], [place] [id number] [facility] [address] [place] [address] July, Abnormal findings on OBGYN [address] [place], radiological or other exams [place] [id number] of body structure, NEC 793.99 ; Personal history of vulvar dysplasia V13.24 and Ovarian cyst NOS 620.2 [place] 103 July, Abnormal findings on OBGYN [facility] radiological or other exams [place], [place] [id number] of body structure, NEC 793.99 [facility] 103 July, [facility] or other exams [place], [place] [id number] of body structure, NEC 793.99 [facility] 103 July, Benign 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 621.34 and [place], [place] [id number] Ovarian cyst NOS 620.2 [facility] 103 July, Personal history of vulvar [facility] dysplasia V13.24 and [place], [place] [id number] 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 [facility] 103 July, O[place], [place] [id number] [facility] 103 Jun, Menometrorrhagia 626.2 OBGYN [place], [place] [id number] [facility] 103 Jun, Ovarian cyst NOS 620.2 and OBGYN [facility] Benign endometrial [place], [place] [id number] hyperplasia 621.34 [facility] 103 Jun, Ovarian cyst NOS 620.2 OBGYN [place], [place] [id number] [facility] 103 Feb, Ovarian cyst NOS 620.2 OBGYN [place] [id number] [facility] 103 Feb, Ovarian cyst NOS 620.2 O[place] [id number] [facility] 103 Jan, CARCINOMA IN SITU VULVA OBGYN [facility] 233.32 [place] [id number] [facility] 103 Jan, CARCINOMA IN SITU VULVA OBGYN [facility] 233.32 and Tobacco use [place], [place] [id number] disorder 305.1 [facility] 103 Jan, O[place] [id number] [facility] 103 Jan, OBGYN [place], [place] [id number] [facility] [address] [place], Jan, Medical [facility] [id number] [facility] 103 Dec, 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) [place], [place] [id number] 624.02 [facility] 103 Dec, OBG[place], [place] [id number] [facility] 103 Dec, 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) [place], [place] [id number] 624.02 and VULVAR LESION 624.9 [facility] 103 Dec, Ovarian cyst NOS 620.2 O[place]YN [place] [id number] [facility] 103 Dec, OBG[place], [place] [id number] [facility] 103 Dec, 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) [place], [place] [id number] 624.02 and VULVAR LESION 624.9 [facility] 103 Oct, OBGYN [place], [place] [id number] [facility] 103 Oct, ROUTINE BATTERY TESTER AND REPAIRER EXAMINATION OBGYN [facility] V72.31 ; PAP SMEAR W/O BATTERY TESTER AND REPAIRER [place], [place] [id number] EXAM V76.2 ; SCREEN MAMMOGRAM NEC V76.12 ; Ovarian cyst NOS 620.2 and 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 [facility] 103 Oct, Ovarian cyst NOS 620.2 OBGYN [place] [id number] [facility] 103 Sep, SCREEN MAMMOGRAM NEC V76.12 OBGYN [place] [id number] [facility] 103 Sep, Menometrorrhagia 626.2 and OBGYN [facility] Ovarian cyst NOS 620.2 [place], [place] [id number] [facility] 103 Sep, Menometrorrhagia 626.2 OBGYN [place] [id number] [facility] 103 Sep, OBG[place], [place] [id number] [facility] 103 Sep, Menometrorrhagia 626.2 and OBGYN [facility] Ovarian cyst NOS 620.2 [place] [id number] [facility] 103 Sep, Ovarian cyst NOS 620.2 OBGYN [place], [place] [id number] [facility] 103 Aug, OBGYN [place], [place] [id number] [facility] 103 Aug, OBGYN [place], [place] [id number] [facility] 103 Aug, OBGYN [place], [place] [id number] [facility] 103 Aug, Menometrorrhagia 626.2 and OBGYN [facility] Ovarian cyst NOS 620.2 [place], [place] [id number] [facility] 103 Aug, OBGYN [place], [place] [id number] [facility] 103 Aug, Menometrorrhagia 626.2 ; OBGYN [facility] Endometrial polyp 621.0 and [place], [place] [id number] Ovarian cyst NOS 620.2 [facility] 103 Aug, Menometrorrhagia 626.2 OBGYN [place], [place] [id number] [facility] 103 Aug, Menometrorrhagia 626.2 ; OBGYN [facility] Ovarian cyst NOS 620.2 and [place], [place] [id number] Endometrial polyp 621.0 [facility] 103 July, [place] [id number] [facility] 103 July, OBGYN [place], [place] [id number] [facility] 103 July, Menometrorrhagia 626.2 and OBGYN [facility] Ovarian cyst NOS 620.2 [place], [place] [id number] [facility] 103 July, Menometrorrhagia 626.2 and OBGYN [facility] Ovarian cyst NOS 620.2 [place], [place] [id number] [facility] 103 Jun, O[place] [id number] [facility] 103 Jun, 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) [place], [place] [id number] 624.02 and Menometrorrhagia 626.2 [facility] 103 Jun, 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) [place], [place] [id number] 624.02 [facility] 103 May, [place], [place] [id number] [facility] 103 May, VULVAR LESION 624.9 ; OBGYN [facility] Vulvar intraepithelial [place], [place] [id number] neoplasia II (CARLEY II) 624.02 and 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 [facility] 103 Apr, Menorrhagia 626.2 ; VULVAR OBGYN [facility] LESION 624.9 ; Vulvar [place] [id number] intraepithelial neoplasia II (CARLEY II) 624.02 ; 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 ; ABN FINDINGS- ORGANS 793.5 ; Abnormal PAP smear of cervix NEC 795.09 and Ovarian cyst NOS 620.2 [place] [facility] 103 Oct, Vulvar [facility]epithelial [facility] neoplasia II (CARLEY II) [place], [place] [id number] 624.02 [facility] 103 Sep, Ovarian cyst NOS 620.2 OBGYN [place], [place] [id number] [facility] 103 Sep, Ovarian cyst NOS 620.2 OBGYN [place], [place] [id number] [facility] 103 Sep, OBGYN [place], [place] [id number] [facility] 103 Sep, Abnormal PAP smear of [facility] cervix NEC 795.09 and [place], [place] [id number] Ovarian cyst NOS 620.2 [facility] 103 Aug, ABN FINDINGS- ORGANS OBGYN [facility] 793.5 [place], [place] [id number] [facility] 103 Aug, ABN FINDINGS- ORGANS OBGYN [facility] 793.5 [place], [place] [id number] [facility] 103 Aug, Abnormal [facility]AP [facility] cervix NEC 795.09 and [place], [place] [id number] Ovarian cyst NOS 620.2 [facility] 103 Aug, OBGYN [place], [place] [id number] [facility] 103 Jun, OBGYN [place], [place] [id number] [facility] 103 May, OBGYN [place], [place] [id number] [facility] 103 May, ROUTINE BATTERY TESTER AND REPAIRER EXAMINATION OBGYN [facility] V72.31 ; PAP SMEAR W/O BATTERY TESTER AND REPAIRER [place], [place] [id number] EXAM V76.2 and SCREEN MAMMOGRAM NEC V76.12 [facility] 103 May, OBGYN [place], [place] [id number] [facility] 103 Apr, 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 [place] [id number] [facility] 103 Dec, 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 [place], [place] [id number] [facility] 103 Dec, 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 [place], [place] [id number] [facility] 103 Oct, [place], [place] [id number] [facility] 103 Oct, OBGYN [place], [place] [id number] [facility] 103 Oct, 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 [place], [place] [id number] [facility] 103 Sep, 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) [place], [place] [id number] 624.02 [facility] 103 July, 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) [place], [place] [id number] 624.02 [facility] 103 July, [place] [id number] [facility] 103 Jun, VULVAR LESION 624.9 OBGYN [place], [place] [id number] [facility] 103 May, VULVAR LESION 624.9 OBGYN [place], [place] [id number] [facility] 103 Apr, ROUTINE BATTERY TESTER AND REPAIRER EXAMINATION OBGYN [facility] V72.31 and PAP SMEAR W/O [place], [place] [id number] BATTERY TESTER AND REPAIRER EXAM V76.2 [facility] 103 Mar, [place] [id number] [facility] 103 Mar, OBGYN [place], [place] [id number] [facility] 103 Sep, Menorrhagia 626.2 OBGYN [place], [place] [address]16[address] [facility] 103 Jun, Menorrhagia 626.2 OBGYN [place], [place] [id number] [facility] [address] [place], May, Medical [facility] [id number] [facility] 103 May, Menorrhagia 626.2 OBGYN [place], [place] [id number] [facility] 103 May, Menorrhagia 626.2 OBGYN [place], [place] [id number] [facility] 103 Apr, Dysuria 788.1 OBGYN [place], [place] [id number] [facility] 103 Apr, Menorrhagia 626.2 OBGYN [place], [place] [id number] [facility] 103 Apr, Menorrhagia 626.2 OBGYN [place], [place] [id number] [facility] 103 Apr, Menorrhagia 626.2 and OBGYN [facility] Endometrial polyp 621.0 [place], [place] [id number] [facility] 103 Apr, Menometrorrhagia 626.2 OBGYN [place], [place] [id number] [facility] [facility] 103 Mar, ROUTINE BATTERY TESTER AND REPAIRER EXAMINATION OBGYN [facility] V72.31 and Menorrhagia [place], [place] [id number] 626.2 [facility] 103 Sep, CERVICAL DYSPLASIA, MILD OBGYN [facility] (PEYMAN I) 622.11 [place], [place] [id number] [facility] 103 Mar, ROUTINE BATTERY TESTER AND REPAIRER EXAMINATION OBGYN [facility] V72.31 and CERVICAL [place], [place] [id number] DYSPLASIA, MILD (PEYMAN I) 622.11 [facility] 103 Jun, Menometrorrhagia 626.2 ; OBGYN [facility] Anemia, iron deficiency, [place], [place] [id number] due to chronic blood loss 280.0 and CERVICAL DYSPLASIA, MILD (PEYMAN I) 622.11 [facility] [address] [place], May, [facility] [id number] [facility] 103 May, Menometrorrhagia 626.2 and OBGYN [facility] Endometrial polyp 621.0 [place] [id number] [facility] [facility] 103 May, Menometrorrhagia 626.2 ; OBGYN [facility] Anemia, iron deficiency, [place], [place] [id number] due to chronic blood loss 280.0 ; Endometrial polyp 621.0 and CERVICAL DYSPLASIA, MILD (PEYMAN I) 622.11 [place] [facility] 103 27 Apr, 2008 Menometrorrhagia 626.2 ; [facility] Anemia, iron deficiency, [place], [place] [id number] due to chronic blood loss 280.0 and Endometrial polyp 621.0 [place] [facility] 103 16 Apr, 2008 Menometrorrhagia 626.2 ; [facility] Anemia, iron deficiency, [place], [place] [id number] due to chronic blood loss 280.0 and Endometrial polyp 621.0 [place] [facility] 103 Apr, OBGYN [place], [place] [id number] [facility] 103 Mar, Menometrorrhagia 626.2 OBGYN [place], [place] [id number] [facility] 103 Mar, Menometrorrhagia 626.2 [facility] Endometrial [facility] 621.0 [place], [place] [id number] [facility] 103 Mar, Abnormal Pap smear of [facility] cervix with low-grade [place], [place] [id number] squamous intraepithelial lesion 795.03 [facility] 103 Mar, Menometrorrhagia 626.2 and [facility] PAP SMEAR CERVIX W LGSIL [place], [place] [id number] 795.03 [facility] 103 Mar, OBN [place], [place] [id number] [facility] 103 Sep, [place] [id number] [facility] 103 Aug, Menorrhagia 626.2 [place], [place] [id number] IMMUNIZATIONS No Known Immunizations SOCIAL HISTORY Never Assessed REASON FOR REFERRAL FUNCTIONAL STATUS PLAN OF CARE VITAL SIGNS MEDICATIONS Unknown Medications PROCEDURES No Known procedures RESULTS No Results REASON FOR VISIT Annual Insurance Providers [facility] Health Member Patient Patient Patient Patient Patient Subscriber Subscriber Subscriber Group Insurance Plan Plan Plan Plan ID Relationship Address Phone Name Date of ID Name Date of No Type Insurance Insurance Insurance Coverage to Subscriber Address Phone Name Dates Excellus [phone] Excell[employer] Oct[place] [id number] Blue [id number] [place] 7 00 Cross/[place] Cross/Blue Shield [id number] Shield Cigna [phone] Cigna [place] [id number] [place] [address] Excellus [phone] Excellus self Octavia [id number] Blue [id number] 89 Blue [place] 6 [place] Cross/Blue Shield [id number] Shield AETNA [phone] AETNA [place] [id number] [address] [address] [facility] [id number] MEDICAL (GENERAL) HISTORY Type Description Date Medical [...] History Colonoscopy (Dr. Renee): sigmoid polyps 05-22-14 Hospitalization History child Hospitalization History see above
[2018-01-11 12:51] VITALS: BP 127/78
--- NOTE | 2018-01-11 13:26 | UC ---
Skin Complaint HPI - HPI Summary HPI Summary: Pt presents with c/o tick bite to right lateral side trunk/chest. Pt noticed tick this morning and attempted to remove tick this mornig. - History of Current Complaint Chief Complaint: UCSkin Time Seen by Provider: 01/11/18 12:58 Stated Complaint: TICK (BACK) Hx Obtained From: Patient Hx Last Menstrual Period: 10/20/12 ?: No Onset/Duration: Sudden Onset, Still Present Timing: Constant Onset Severity: Mild Current Severity: Mild Pain Intensity: 1 Character: Raised Aggravating Factor(s): Touch Alleviating Factor(s): Nothing Associated Signs & Symptoms: Positive: Tenderness Related History: Foreign Body, Insect Bite/Sting - Allergy/Home Medications Allergies/Adverse Reactions: Allergies Allergy/AdvReac Type Severity Reaction Status Date / Time No Known Allergies Allergy Verified 01/11/18 12:36 Home Medications: Home Medications Antidepressant 1 tab PO DAILY 01/11/18 [History] Atorvastatin* [Lipitor 10 MG*] 10 mg PO DAILY 01/11/18 [History Confirmed ] Clopidogrel TAB* [Plavix TAB*] 75 mg PO DAILY 01/11/18 [History Confirmed ] Review of Systems All Other Systems Reviewed And Are Negative: Yes Constitutional: Positive: Negative Skin: Positive: Other - tick bite Eyes: Positive: Negative ENT: Positive: Negative Respiratory: Positive: Negative Cardiovascular: Positive: Negative Gastrointestinal: Positive: Negative Genitourinary: Positive: Negative Motor: Positive: Negative Neurovascular: Positive: Negative Musculoskeletal: Positive: Negative Neurological: Positive: Negative Psychological: Positive: Negative Is Patient Immunocompromised?: No PMH/Surg Hx/FS Hx/Imm Hx Previously Healthy: Yes - Surgical History Surgical History: Yes Surgery Procedure, Year, and Place: TUBAL,HERNIA 04/18, D&C X 2, TONSILECTOMY. BILATERAL FEMORAL ARTERY STENTS, - Family History Known Family History: Positive: Cardiac Disease - Social History Occupation: Employed Full-time Lives: With Family Alcohol Use: Weekly Substance Use Type: None Smoking Status (MU): Current Every Day Smoker Type: Cigarettes Amount Used/How Often: 1 PPD Length of Time of Smoking/Using Tobacco: 30 YRS Have You Smoked in the Last Year: Yes Physical Exam Triage Information Reviewed: Yes Appearance: Well-Appearing Vital Signs: Initial Vital Signs Temp 98.5 F 01/11/18 12:42 Pulse 78 01/11/18 12:42 Resp 16 01/11/18 12:42 BP 127/78 01/11/18 12:42 Pulse Ox 100 01/11/18 12:42 Vital Signs Reviewed: Yes Eye Exam: Normal ENT Exam: Normal Dental Exam: Normal Neck exam: Normal Respiratory Exam: Normal Musculoskeletal Exam: Normal Neurological Exam: Normal Psychological Exam: Normal Skin Exam: Other - erythematous circular area right lateral upper trunk/back, just below bra line. ~ 1 cm in diameter. with blackened center that is rough surface that appears to be the remains of a tick. Pt denies pain, fever or discharge from site Diagnostics - Laboratory Diagnostic Studies Completed/Ordered: I attempted to remove tick with blunt drawing needle. tiny pieces of tick were removed. Course/Dx - Differential Diagnoses - Skin Complaint Differential Diagnoses: Cellulitis, MRSA, Tick Born Illness - Diagnoses Provider Diagnoses: tick bite with tick still attached. Discharge - Sign-Out/Discharge Documenting (check all that apply): Patient Departure All imaging exams completed and their final reports reviewed: No Studies - Discharge Plan Condition: Stable Disposition: HOME Prescriptions: DOXYcycline CAP(*) [DOXYcycline 100MG CAP(*)] 100 mg PO Q12H #14 cap Patient Education Materials: Tick Bite (ED) Referrals: Salena Alas MD [Primary Care Provider] - If Needed - Billing Disposition and Condition Condition: STABLE Disposition: Home Addendum entered and electronically signed by Julio MAYES,Belén Schmitt NP 12/21 08:36:
== END 2018-01-11 13:33 | disposition home or self-care (01) ==
LOC: UCCORT 10:28
DX: S20.361A Insect bite (nonvenomous) of right front wall of thorax, initial encounter (principal); F17.210 Nicotine dependence, cigarettes, uncomplicated; Z79.02 Long term (current) use of antithrombotics/antiplatelets; W57.XXXA Bitten or stung by nonvenomous insect and other nonvenomous arthropods, initial encounter; Y92.9 Unspecified place or not applicable
CPT/HCPCS: 99212; G0463

== ENCOUNTER 2018-04-23 11:16 | Emergency (ER) | payer BC ==
--- OUTSIDE RECORDS SUMMARY | 2018-04-23 12:10 | XMS REPORT | Continuity of Care Document ---
:1965 External Reference #:[id number] Author Name [facility] Care Team Providers Name Role Phone Salena Alas M.D. Care Team Information Director Corporate Communications Unavailable Salena Alas M.D. Primary Care Physician Unavailable Payers Type Date Identification Numbers Payment Provider Subscriber Policy Number: [id number] [employer] Facets Octavia [place] PayID: [id number] [address] [phone] Expires: 2018 Policy Number: [id number] [employer] [place] [place] PayID: [id number] [address] [place] [phone] Advance Directives Description No Information Available Problems Description No Information Family History Date Family Member(s) Problem(s) Comments : (age 76 Years) Father due to Natural Causes Mother 79 Social History Type Date Description Comments Sex Unknown Tobacco Use Start: Unknown Current Cigarette Smoker 5-10 Cigarettes Daily ETOH Use Consumed liquor 5 times per day in the past ETOH Use Consumed liquor 2 times per day in the past Tobacco Use Start: Unknown Patient is a current smoker, smokes every day Allergies, Adverse Reactions, Alerts Description No Known Drug Allergies Medications Medication Date Status Form Strength Qnty SIG Indications Ordering Provider Pentoxifylline 08/23/ Active Tablets ER 400mg 90tabs take one Artur ER 2018 tablet Semel, by mouth M.DBob three times a day Atorvastatin / Active Tablets 20mg qd Bishop Calcium 0000 , Chelsea Martino Venlafaxine HCL / Active Caps ER 37.5mg Alas ER 0000 24HR Salena M.D. Aspir-81 / Active Tablets DR 81mg 1 by Unknown 0000 mouth every day Lisinopril-Alpine / Active Tablets 20-12.5mg every Unknown chlorothiazide 0000 day Amlodipine 00/00/ Active Tablets 10mg every Unknown Besylate 0000 day Vitamin B 0000/ Active Tablets qd Unknown Complex 0000 Vitamin D 00/ Active Tablets 1000Unit 1 by Unknown (Cholecalciferol 0000 mouth ) every day Metoprolol 00/00/ Active Tablets ER 50mg qd Alas Succinate ER 0000 24HR , Chelsea Martino Fish Oil / Active Capsules 1000mg 1 by Unknown 0000 mouth twice a day Gabapentin / Hx Capsules 100mg 3 at Alas 0000 - night , Salena 02/13/ Chelsea 2017 Metoprolol / Hx Tablets 100mg 1 tablet Unknown Tartrate 0000 - a day 2017 Naltrexone HCL / Hx Tablets 50mg every Unknown 0000 - day 2017 Immunizations Description No Information Available Vital Signs Date Vital Result Comment 03/30/2018 1:06pm BP Systolic Right Arm 140 mmHg BP Diastolic Right Arm 80 mmHg Heart Rate 72 /min Height 62 inches 5'2" Weight 147.00 lb Weight 66.679 kg BMI (Body Mass Index) 26.9 kg/m2 02/14/2018 11:09am BP Systolic Right Arm 120 mmHg BP Diastolic Right Arm 60 mmHg BP Systolic Left Arm 110 mmHg BP Diastolic Left Arm 60 mmHg Heart Rate 72 /min Height 62 inches 5'2" Weight 139.00 lb Weight 63.050 kg BMI (Body Mass Index) 25.4 kg/m2 11/22/2017 11:26am BP Systolic Right Arm 132 mmHg BP Diastolic Right Arm 70 mmHg Height 62 inches 5'2" 10/25/2017 9:55am BP Systolic Right Arm 120 mmHg BP Diastolic Right Arm 70 mmHg BP Systolic Left Arm 120 mmHg BP Diastolic Left Arm 70 mmHg Heart Rate 60 /min Height 62 inches 5'2" Weight 129.00 lb Weight 58.514 kg BMI (Body Mass Index) 23.6 kg/m2 08/23/2017 9:29am BP Systolic Right Arm 120 mmHg BP Diastolic Right Arm 80 mmHg Heart Rate 80 /min Height 62 inches 5'2" Weight 129.00 lb Weight 58.514 kg BMI (Body Mass Index) 23.6 kg/m2 08/17/2017 8:54am BP Systolic Right Arm 130 mmHg BP Diastolic Right Arm 80 mmHg BP Systolic Left Arm 130 mmHg BP Diastolic Left Arm 80 mmHg Heart Rate 68 /min Height 62 inches 5'2" Weight 129.00 lb Weight 58.514 kg BMI (Body Mass Index) 23.6 kg/m2 Results Description No Information Available Procedures Date Code Description Status 11/22/2017 02638 Duplex Scan Aorta/Inf Vena Cava/Iliac Vasc/Bypass GRFT Completed LTD/Fol-Up 10/13/2017 97864 Iliac Angioplasty/Stent-Initia Completed Encounters Type Date Location Provider Dx Diagnosis Office Visit 02/14/2018 Main Office Artur Bustos I70.213 [place] 10:45a M.D. arteries of extrm w intrmt david, bi legs Office Visit 10/25/2017 Main Office Artur Bustos Z48.812 Encntr for surgical 9:30a M.D. aftcr following surgery on the circ sys Z95.820 Peripheral vascular angioplasty status w implants and grafts Office Visit 08/23/2017 9:15a Main Office Artur Bustos I70.213 [place] M.D. arteries of extrm w intrmt david, bi legs Office Visit 08/17/2017 8:30a Main Office Artur Bustos I70.213 [place] M.D. arteries of extrm w intrmt david, bi legs Plan of Treatment Future Appointment(s):05/21/2018 10:30 am - Artur Bustos M.D.06/01/2018 2: 30 pm - Artur Bustos M.D. at Main [id number]/01/2018 2:00 pm - Vascular Lab at Main [id number]/30/2018 - Artur Bustos M.D.I70.213 [place] arteries of extrm w intrmt david, bi legsFollow up:SCHEDULED FOR SURGERY MEDICAL CLEARANCE Crow et al
[2018-04-23 12:33] VITALS: BP 109/68
--- NOTE | 2018-04-23 12:42 | UC ---
General HPI - HPI Summary HPI Summary: PT USED A NEW CREAM ON HER FACE. YESTERDAY, SHE DEVELOPED A BURNING-PEELING RASH WHERE SHE HAD BEEN APPLYING THE CREAM. NO FEVER, SOB, COUGH OR SWELLING. SHE HAS STOPPED THE CREAM AND SOME OF THE RASH HAS IMPROVED BUT HAS ONGOING IRRITATION PLUS IT ITCHES. - History of Current Complaint Chief Complaint: UCRash Stated Complaint: SKIN CONCERN (FACE) Time Seen by Provider: 04/23/18 12:19 Hx Obtained From: Patient Hx Last Menstrual Period: 3 yrs Onset/Duration: Gradual Onset Timing: Constant Pain Intensity: 6 Associated Signs & Symptoms: Negative: Edema, Fever - Allergy/Home Medications Allergies/Adverse Reactions: Allergies Allergy/AdvReac Type Severity Reaction Status Date / Time No Known Allergies Allergy Verified 04/23/18 12:33 Home Medications: Home Medications Aspirin TAB* [Aspirin 325 MG TAB*] 325 mg PO DAILY 04/23/18 [History Confirmed 04/23/18] Cholecalciferol TAB* [Vitamin D TAB*] 1,000 unit PO DAILY 04/23/18 [History Confirmed 04/23/18] [place]-3 Fatty Acids/Fish Oil [Fish Oil 1,000 mg Softgel] 1 each PO SEE INSTRUCTIONS 04/23/18 [History Confirmed 04/23/18] Pentoxifylline CR TAB* [TRENtal CR TAB*] 400 mg PO TID 04/23/18 [History Confirmed 04/23/18] Venlafaxine HCl 75 mg PO DAILY 04/23/18 [History Confirmed 04/23/18] PMH/Surg Hx/FS Hx/Imm Hx - Additional Past Medical History Additional PMH: PVD Endocrine History: Dyslipidemia Cardiovascular History: Hypertension - Surgical History Surgical History: Yes Surgery Procedure, Year, and Place: TUBAL,HERNIA 04/18, D&C X 2, TONSILECTOMY. BILATERAL FEMORAL ARTERY STENTS, - Family History Known Family History: Positive: None, Cardiac Disease - Social History Alcohol Use: Weekly Substance Use Type: None Smoking Status (MU): Current Every Day Smoker Type: Cigarettes Amount Used/How Often: 1 PPD Length of Time of Smoking/Using Tobacco: 30 YRS Have You Smoked in the Last Year: Yes - Immunization History Vaccination Up to Date: Yes Review of Systems All Other Systems Reviewed And Are Negative: Yes Constitutional: Positive: Negative Skin: Positive: Rash Eyes: Positive: Negative ENT: Positive: Negative Respiratory: Positive: Negative Cardiovascular: Positive: Negative Gastrointestinal: Positive: Negative Genitourinary: Positive: Negative Motor: Positive: Negative Neurovascular: Positive: Negative Musculoskeletal: Positive: Negative Neurological: Positive: Negative Psychological: Positive: Negative Physical Exam Triage Information Reviewed: Yes Appearance: Well-Appearing Vital Signs: Initial Vital Signs Temp 98.3 F 04/23/18 12:24 Pulse 86 04/23/18 12:24 Resp 20 04/23/18 12:24 BP 109/68 04/23/18 12:24 Pulse Ox 100 04/23/18 12:24 Vital Signs Reviewed: Yes Eyes: Positive: Conjunctiva Clear ENT: Positive: Pharynx normal, TMs normal. Negative: Nasal congestion, Nasal drainage Neck: Positive: Supple, Nontender, No Lymphadenopathy Respiratory: Positive: Lungs clear, Normal breath sounds, No respiratory distress Cardiovascular: Positive: RRR, No Murmur Abdomen Description: Positive: Nontender, No Organomegaly, Soft Bowel Sounds: Positive: Present Musculoskeletal: Positive: ROM Intact Neurological: Positive: Alert Psychological: Positive: Age Appropriate Behavior Skin Exam: Normal, Other - Central face(distribution where cream applied) is mildly red and peeling but not hot. Course/Dx - Differential Dx - Multi-Symptom Differential Diagnoses: Other - no concern for fungal or bacterial infection. c/ w contact dermatitis. pt has already d/c'ed the cream. - Diagnoses Provider Diagnosis: Contact dermatitis Discharge - Sign-Out/Discharge Documenting (check all that apply): Patient Departure All imaging exams completed and their final reports reviewed: No Studies - Discharge Plan Condition: Stable Disposition: HOME Prescriptions: predniSONE [Prednisone 20 MG TAB] 40 mg PO DAILY 5 Days #10 tablet Patient Education Materials: Contact Dermatitis (DC) Referrals: Salena Alas MD [Primary Care Provider] - 5 Days Additional Instructions: APPLY A THIN LAYER OF OVER THE COUNTER HYDROCORTISONE CREAM TWICE DAILY FOR 2 DAYS THEN STOP. FOLLOW UP WITH PRIMARY CARE IF NOT BETTER IN 5 DAYS OR SOONER IF WORSE. - Billing Disposition and Condition Condition: STABLE Disposition: Home
== END 2018-04-23 13:03 | disposition home or self-care (01) ==
LOC: UCCORT 11:16
DX: L25.0 Unspecified contact dermatitis due to cosmetics (principal); I10 Essential (primary) hypertension; F17.210 Nicotine dependence, cigarettes, uncomplicated; Z79.82 Long term (current) use of aspirin
CPT/HCPCS: 99212; G0463